=== PATIENT | male | born 1950 | race Caucasian/White ===

== ENCOUNTER 2025-02-13 19:15 | Emergency (ER) | payer OTHER ==
[~2025-02-13] VITALS: Ht 177.8 cm; Wt 77.0 kg
[2025-02-13 19:24] VITALS: O2SAT 98
[2025-02-13] MEDS ORDERED: ONDANSETRON HCL 4MG/2ML INJ IV ONE (21:30)
[2025-02-13] MEDS: ONDANSETRON HCL 4MG/2ML INJ IV SCH (23:16)
[2025-02-13] MEDS: SODIUM CHLORIDE 0.9% 1,000 ML IV ONE (23:16)
[2025-02-13 23:46] LABS: HEMATOCRIT. 34.8 % (42.0-52.0); MEAN CORPUSCULAR HGB CONC 34.7 g/dL (31.0-37.0); MEAN CORPUSCULAR VOLUME 92.3 fL (80.0-94.0); PLATELET 289 x1000/uL (130-400); RED BLOOD CELL COUNT 3.77 mill/uL (4.7-6.1); RED CELL DISTRIBUTION WIDTH 13.4 % (11.6-14.6); WHITE BLOOD COUNT 10.7 x1000/uL (4.5-11.0)
[2025-02-13 23:49] LABS: CHLORIDE 101 mEq/L (98-107); POTASSIUM 4.3 mEq/L (3.5-5.1); SODIUM 139 mEq/L (136-145)
[2025-02-13 23:50] LABS: CALCIUM 9.3 mg/dL (8.7-10.4); CARBON DIOXIDE 27 mEq/L (21-32)
[2025-02-13 23:52] LABS: DIFFERENTIAL COMMENT 1
[2025-02-13 23:55] LABS: CREATININE 0.9 mg/dL (0.6-1.3); GLUCOSE 120 mg/dL (70-105); UREA NITROGEN BLOOD 16 mg/dL (9-23)
[2025-02-14 00:50] VITALS: TEMP 36.8
[2025-02-14] MEDS ORDERED: ONDA-239 PO (01:38)
[2025-02-14 01:49] VITALS: BP 113/60; PULSE 72; RESP 16; O2SAT 99
[2025-02-14 03:18] LABS: PLATELET ESTIMATE NORMAL
== END 2025-02-14 01:52 | disposition home or self-care (01) ==
LOC: ER 19:15
DX: K52.9 Noninfective gastroenteritis and colitis, unspecified (principal); Z79.899 Other long term (current) drug therapy
CPT/HCPCS: 99285; 96374; 96361; 80048; 85025; 36415; 93005; J2405; J7030